=== PATIENT | male | born 2000 | race Hispanic/Latino ===

== ENCOUNTER → 2021-06-16 | Outpatient (CLI) | payer OTHER | END | disposition home or self-care (01) | LOC: LAB 09:01 | PROVIDERS: ATTEND Internal Medicine Cardiovascular Disease | DX: Z20.822 Contact with and (suspected) exposure to COVID-19 (principal) | CPT/HCPCS: 87635; C9803 ==

== ENCOUNTER → 2021-06-19 | Outpatient (CLI) | payer OTHER | END | disposition home or self-care (01) | LOC: LAB 11:31 | PROVIDERS: ATTEND Internal Medicine Cardiovascular Disease | DX: Z20.822 Contact with and (suspected) exposure to COVID-19 (principal) | CPT/HCPCS: 87635; C9803 ==

== ENCOUNTER → 2024-01-20 | Outpatient (CLI) | payer OTHER | END | disposition home or self-care (01) | LOC: LAB 08:16 | PROVIDERS: ATTEND Hospitalist | DX: Z20.822 Contact with and (suspected) exposure to COVID-19 (principal) | CPT/HCPCS: 87426 ==

== ENCOUNTER 2024-02-18 02:29 | Inpatient (IN) | payer OTHER ==
[2024-02-18] VITALS (47 sets, daily range): BP systolic 99–131; BP diastolic 50–86; PULSE 57–130; RESP 16–36; O2SAT 93–100
[~2024-02-18] VITALS: Ht 172.7 cm; Wt 153.8 kg
[2024-02-18 03:10] LABS: BASOPHILS # (AUTO) 0.04 K/uL (0.00-0.20); BASOPHILS % (AUTO) 0.5 % (0.0-5.0); EOSINOPHILS # (AUTO) 0.22 K/uL (0.00-0.70); EOSINOPHILS % (AUTO) 2.6 % (0.0-8.0); HEMATOCRIT 44.3 % (42-54); IMMATURE GRANULOCYTE ABSOLUTE 0.03 K/uL (0-1); LYMPHOCYTES # (AUTO) 3.5 K/uL (1.0-4.8); MEAN CORPUSCULAR HEMOGLOBIN 28.4 pg (27.0-33.0); MEAN CORPUSCULAR HGB CONC 32.3 g/dL (32.0-36.0); MEAN CORPUSCULAR VOLUME 87.9 fL (79-99); MONOCYTES # (AUTO) 0.7 K/uL (0.1-1.0); MONOCYTES % (AUTO) 7.8 % (3.0-13.0); NEUTROPHILS # (AUTO) 4.1 K/uL (1.8-7.7); NEUTROPHILS % (AUTO) 47.8 % (40.0-77.0); PLATELET COUNT (AUTO) 348 K/uL (130-400); RED BLOOD CELL COUNT(AUTO) 5.04 MIL/uL (4.50-6.20); WHITE BLOOD COUNT (AUTO) 8.6 K/uL (4.8-10.8)
[2024-02-18] MEDS: FAMOTIDINE 20MG VIAL IV ONE ×2 (03:14→03:16)
[2024-02-18] MEDS: SOLU-MEDROL 125MG VIAL IVP ONE (03:14)
[2024-02-18] MEDS: DEXAMETHASONE SOD PHOSPHATE 4 MG/ML 1ML VIAL IV ONE (03:15)
[2024-02-18] MEDS: MIDAZOLAM 50MG-0.9% NS 50ML 50 ML IV SCH (03:15)
[2024-02-18] MEDS: SOLU-MEDROL 125MG VIAL ONE (03:16)
[2024-02-18] MEDS: DEXAMETHASONE SOD PHOSPHATE 4 MG/ML 1ML VIAL ONE (03:16)
[2024-02-18 03:21] LABS: ALBUMIN 4.1 g/dL (3.5-5.0); BILIRUBIN,TOTAL 0.5 mg/dL (0.2-1.0); CREATININE 0.9 mg/dL (0.5-1.3); POTASSIUM 3.1 mmol/L (3.5-5.1); TOTAL PROTEIN, SERUM 8.4 g/dL (6.0-8.3)
[2024-02-18 03:26] LABS: ABG BASE EXCESS -0.6 mmol/L (-2.0-3.0); ABG HCO3 24.6 mmol/L (21.0-28.0); ABG PCO2 42 mmHg (35-48); ABG PH 7.384 (7.350-7.450); CARBON MONOXIDE 0.6; PO2, ARTERIAL BG 81.8 mmHg (83.0-108.0); VENT MODE, BG AC VC (ROOM AIR)
[2024-02-18] MEDS ORDERED: DiphenhydrAMINE HCL 50 MG/ML VIAL IM PRN (03:30)
[2024-02-18] MEDS: FENTANYL 1000MCG+NS 100ML 100 ML IV SCH (03:50)
[2024-02-18] MEDS: FENTANYL CITRATE PF 50 MCG/1 ML 2ML VIAL IVP PRN (03:50)
[2024-02-18 03:59] LABS: RAPID GROUP A STREP negative (NEGATIVE)
[2024-02-18 04:01] LABS: SARS-CoV-2, RNA, NAAT NEGATIVE SARS CoV-2 (NEGATIVE)
[2024-02-18 04:04] LABS: INFLUENZA TYPE A Negative For Type A (NEGATIVE); INFLUENZA TYPE B Negative For Type B (NEGATIVE)
[2024-02-18] MEDS: FENTANYL 1000MCG+NS 100ML 100 ML IV ONE (04:22)
[2024-02-18] MEDS: FENTANYL CITRATE PF 50 MCG/1 ML 2ML VIAL IVP ONE (04:24)
[2024-02-18] MEDS ORDERED: IOHEXOL-350 75 ML VIAL IV ONE (04:47)
[2024-02-18] MEDS: LACTATED RINGERS 1000ML 1,000 ML IV SCH (05:47)
[2024-02-18] MEDS: DEXAMETHASONE SOD PHOSPHATE 4 MG/ML 1ML VIAL IV SCH (05:47)
[2024-02-18] MEDS: PROPOFOL 1000 MG/100 ML 100 ML IV SCH (06:18)
[2024-02-18] MEDS: POTASSIUM CHLORIDE 10MEQ/100ML 100 ML IV PRN (06:42)
[2024-02-18] MEDS: FENTANYL 2500MCG+NS 250ML 250 ML IV ONE ×2 (07:17→15:39)
[2024-02-18] MEDS: FUROSEMIDE 40MG VIAL IV SCH ×2 (08:42→21:13)
[2024-02-18] MEDS: FAMOTIDINE 20MG VIAL IV SCH (08:44)
[2024-02-18] MEDS: MONTELUKAST SODIUM 10 MG TAB PO SCH (08:44)
[2024-02-18] MEDS: ENOXAPARIN SODIUM 40 MG/0.4 ML SYRINGE SQ SCH (08:50)
[2024-02-18] MEDS ORDERED: FAMOTIDINE 20MG VIAL IV SCH (09:00)
[2024-02-18] MEDS: POTASSIUM CHLORIDE 10% ELIXIR 20 MEQ/15 ML UDCUP PO PRN (09:15)
[2024-02-18] MEDS: IPRATROPIUM/ALBUTEROL SULFATE 3 ML SOLUTION IH SCH (11:56)
[2024-02-18] MEDS: IPRATROPIUM/ALBUTEROL SULFATE 3 ML SOLUTION IH ONE (11:57)
[2024-02-18] MEDS ORDERED: ROCURONIUM BROMIDE 10MG/1ML 5ML VL IV ONE (12:59)
[2024-02-18 13:02] LABS: AMPHET/METH SCREEN,URINE NEGATIVE (NEGATIVE); BARBITURATE SCREEN, URINE NEGATIVE (NEGATIVE); BENZODIAZEPINES SCREEN,URINE POSITIVE (NEGATIVE); CANNABINOID SCREEN,URINE POSITIVE (NEGATIVE); COCAINE SCREEN,URINE NEGATIVE (NEGATIVE); OPIATE SCREEN,URINE NEGATIVE (NEGATIVE); PHENCYCLIDINE SCREEN,URINE NEGATIVE (NEGATIVE)
[2024-02-18 13:06] LABS: ADD UA MICROSCOPIC NO; APPEARANCE,URINE CLEAR (CLEAR); BILIRUBIN,URINE NEGATIVE (NEGATIVE); COLOR,URINE LIGHT-YELLOW (YELLOW); GLUCOSE, URINE (UA) NEGATIVE (NEGATIVE); KETONES,URINE NEGATIVE (NEGATIVE); LEUKOCYTE ESTERASE ,URINE NEGATIVE Leu/uL (NEGATIVE); NITRATE,URINE NEGATIVE (NEGATIVE); OCCULT BLOOD,URINE NEGATIVE (NEGATIVE); PH,URINE 6.5 (5.0-8.0); PROTEIN,URINE NEGATIVE (NEGATIVE); UROBILINOGEN,URINE 0.2 mg/dL (0.2-1.0)
[2024-02-18] MEDS: ZOSYN 3.375GM +NS 50ML IV SCH (15:38)
[2024-02-18 16:19] LABS: CREATININE 0.8 mg/dL (0.5-1.3); POTASSIUM 4.7 mmol/L (3.5-5.1)
[2024-02-18] MEDS: INSULIN HUMULIN R 100 UNIT/ML 3ML SQ SCH (18:00)
[2024-02-18] MEDS: BUDESONIDE 0.5 MG/2 ML INH IH SCH (18:52)
[2024-02-18] MEDS ORDERED: COMPOUND IV MISC 1 EACH IVSOLN MISC PRN (19:30)
[2024-02-18 20:06] LABS: ABG BASE EXCESS -0.1 mmol/L (-2.0-3.0); ABG HCO3 24.1 mmol/L (21.0-28.0); ABG OXYGEN SATURATION 96.2 % (95.0-99.0); ABG PCO2 38 mmHg (35-48); CARBON MONOXIDE 0.5; HHb 3.8; PO2, ARTERIAL BG 82.9 mmHg (83.0-108.0); VENT MODE, BG AC (ROOM AIR)
[2024-02-18] MEDS: CHLORDIAZEPOXIDE HCL 25 MG CAP PO SCH (21:13)
[2024-02-18] MEDS: THIAMINE HCL 100 MG/ML 2ML VIAL IVP ONE (21:13)
[2024-02-19] VITALS (102 sets, daily range): BP systolic 104–154; BP diastolic 51–94; PULSE 48–124; RESP 5–27; O2SAT 93–97
[2024-02-19] MEDS: FENTANYL 2500MCG+NS 250ML 250 ML IV ONE (00:46)
[2024-02-19 03:30] LABS: HEMATOCRIT 39.6 % (42-54); IMMATURE GRANULOCYTE ABSOLUTE 0.04 K/uL (0-1); LYMPHOCYTES # (AUTO) 0.9 K/uL (1.0-4.8); LYMPHOCYTES % (AUTO) 8.4 % (21.0-51.0); MEAN CORPUSCULAR HEMOGLOBIN 28.5 pg (27.0-33.0); MEAN CORPUSCULAR HGB CONC 32.6 g/dL (32.0-36.0); MEAN CORPUSCULAR VOLUME 87.4 fL (79-99); MONOCYTES # (AUTO) 0.4 K/uL (0.1-1.0); MONOCYTES % (AUTO) 3.3 % (3.0-13.0); NEUTROPHILS # (AUTO) 9.5 K/uL (1.8-7.7); NEUTROPHILS % (AUTO) 87.9 % (40.0-77.0); PLATELET COUNT (AUTO) 313 K/uL (130-400); RED BLOOD CELL COUNT(AUTO) 4.53 MIL/uL (4.50-6.20); RED CELL DISTRIBUTION WIDTH 14.4 % (11.0-15.5); WHITE BLOOD COUNT (AUTO) 10.8 K/uL (4.8-10.8)
[2024-02-19 03:44] LABS: INR <= 0.93 (0.85-1.15); PROTHROMBIN TIME 10.2 SEC (9.6-11.6)
[2024-02-19 03:45] LABS: HEMOGLOBIN A1C 5.9 % (4.0-6.0)
[2024-02-19 03:46] LABS: PARTIAL THROMBOPLASTIN TIME 28.7 SEC (26.3-35.5)
[2024-02-19 03:51] LABS: WBC MORPHOLOGY CONSISTENT W/DIFF
[2024-02-19 03:55] LABS: ALBUMIN 3.6 g/dL (3.5-5.0); BILIRUBIN,TOTAL 0.3 mg/dL (0.2-1.0); CREATININE 0.8 mg/dL (0.5-1.3); MAGNESIUM 2.2 mg/dL (1.80-2.40); POTASSIUM 4.2 mmol/L (3.5-5.1); TOTAL PROTEIN, SERUM 7.4 g/dL (6.0-8.3)
[2024-02-19] MEDS: M.V.I. IV [ADULT] 10 ML, FOLIC ACID 1 MG, THIAMINE HCL 300 MG in 0.9%NACL 1000ML 1,000 ML IV SCH (08:50)
[2024-02-19 09:25] LABS: ABG BASE EXCESS -0.8 mmol/L (-2.0-3.0); ABG HCO3 23.9 mmol/L (21.0-28.0); ABG OXYGEN SATURATION 95.4 % (95.0-99.0); ABG PCO2 40 mmHg (35-48); ABG PH 7.396 (7.350-7.450); DEVICE COMMENT LB; PO2, ARTERIAL BG 77.2 mmHg (83.0-108.0); VENT MODE, BG AC (ROOM AIR)
[2024-02-19] MEDS: CHLORDIAZEPOXIDE HCL 25 MG CAP PO ONE (09:57)
[2024-02-19] MEDS: FENTANYL 2500MCG+NS 250ML 250 ML IV SCH (11:19)
[2024-02-19] MEDS: CHLORDIAZEPOXIDE HCL 25 MG CAP PO SCH (22:00)
[2024-02-19] MEDS: 0.9%NACL 10ML VIAL IV SCH (22:00)
[2024-02-20] VITALS (51 sets, daily range): BP systolic 117–190; BP diastolic 66–127; PULSE 49–124; RESP 15–129; O2SAT 93–97
[2024-02-20 06:09] LABS: HEMATOCRIT 37.5 % (42-54); MEAN CORPUSCULAR HEMOGLOBIN 28.6 pg (27.0-33.0); MEAN CORPUSCULAR HGB CONC 31.5 g/dL (32.0-36.0); RED BLOOD CELL COUNT(AUTO) 4.12 MIL/uL (4.50-6.20); RED CELL DISTRIBUTION WIDTH 14.6 % (11.0-15.5); WHITE BLOOD COUNT (AUTO) 10.9 K/uL (4.8-10.8)
[2024-02-20 06:26] LABS: ALBUMIN 3.1 g/dL (3.5-5.0); BILIRUBIN,TOTAL 0.3 mg/dL (0.2-1.0); CREATININE 0.8 mg/dL (0.5-1.3); MAGNESIUM 2.3 mg/dL (1.80-2.40); POTASSIUM 3.7 mmol/L (3.5-5.1); TOTAL PROTEIN, SERUM 6.4 g/dL (6.0-8.3)
[2024-02-20 10:02] LABS: ABG BASE EXCESS 2.7 mmol/L (-2.0-3.0); ABG HCO3 27.9 mmol/L (21.0-28.0); ABG OXYGEN SATURATION 94.9 % (95.0-99.0); ABG PCO2 45 mmHg (35-48); VENT MODE, BG AC-VC (ROOM AIR)
[2024-02-20] MEDS: METOPROLOL TARTRATE 25 MG TAB PO ONE (10:55)
[2024-02-20] MEDS: DIAZEPAM 5 MG TABLET PO SCH (11:28)
[2024-02-20 14:02] LABS: ABG BASE EXCESS 5.4 mmol/L (-2.0-3.0); ABG HCO3 27.4 mmol/L (21.0-28.0); ABG PCO2 32 mmHg (35-48); ABG PH 7.545 (7.350-7.450); PO2, ARTERIAL BG 135.4 mmHg (83.0-108.0); VENT MODE, BG CPAP PS10 (ROOM AIR)
[2024-02-20] MEDS: LORAZEPAM 2 MG/ML 1 ML VIAL IVP PRN (14:41)
[2024-02-20] MEDS: POLYETHYLENE GLYCOL 3350 17 GM POWD.PACK PO SCH (16:22)
[2024-02-20] MEDS: METOPROLOL TARTRATE 25 MG TAB PO SCH (20:07)
[2024-02-20] MEDS: DEXAMETHASONE SOD PHOSPHATE 4 MG/ML 1ML VIAL IVP SCH (21:07)
[2024-02-20] MEDS: METOPROLOL TARTRATE 50 MG TAB PO ONE (22:30)
[2024-02-21] VITALS (41 sets, daily range): BP systolic 141–184; BP diastolic 81–123; PULSE 68–106; RESP 13–70; O2SAT 92–99
[2024-02-21 05:18] LABS: HEMATOCRIT 42.6 % (42-54); MEAN CORPUSCULAR HEMOGLOBIN 28.3 pg (27.0-33.0); MEAN CORPUSCULAR HGB CONC 32.4 g/dL (32.0-36.0); MEAN CORPUSCULAR VOLUME 87.3 fL (79-99); RED BLOOD CELL COUNT(AUTO) 4.88 MIL/uL (4.50-6.20); WHITE BLOOD COUNT (AUTO) 16.4 K/uL (4.8-10.8)
[2024-02-21] MEDS: HYDRALAZINE 20MG/ML VIAL IV PRN (05:23)
[2024-02-21 05:53] LABS: BILIRUBIN,TOTAL 0.4 mg/dL (0.2-1.0); CREATININE 0.8 mg/dL (0.5-1.3); MAGNESIUM 2.7 mg/dL (1.80-2.40); POTASSIUM 3.9 mmol/L (3.5-5.1); THYROID STIMULATING HORMONE 1.58 uIU/mL (0.36-3.74); TOTAL PROTEIN, SERUM 8.1 g/dL (6.0-8.3)
[2024-02-21] MEDS: Vitamin B Complex/Vit C/Folic Acid PO SCH (08:50)
[2024-02-21] MEDS: THIAMINE HCL 100 MG TABLET PO SCH (08:50)
[2024-02-21] MEDS: METOPROLOL TARTRATE 50 MG TAB PO SCH (08:50)
[2024-02-21] MEDS: MULTIVITAMIN TABLET PO SCH (08:51)
[2024-02-21] MEDS: ONDANSETRON 4MG INJ IV PRN (10:00)
[2024-02-21] MEDS: DiphenhydrAMINE HCL 50 MG/ML VIAL IV PRN (17:37)
[2024-02-21] MEDS ORDERED: DIAZEPAM 5 MG TABLET PO PRN (18:30)
[2024-02-21] MEDS: DIAZEPAM 5 MG TABLET PO SCH (18:36)
[2024-02-21] MEDS: AMLODIPINE 5 MG TAB PO ONE (19:39)
[2024-02-21] MEDS: BENZOCAINE/MENTH/CETYLPYRD CL 1 EACH LOZENGE MM PRN (20:13)
[2024-02-22 03:55] VITALS: BP 138/73; PULSE 57; RESP 16
[2024-02-22 06:13] VITALS: PULSE 79; RESP 28
[2024-02-22] MEDS: LORATADINE 10 MG TABLET PO SCH (07:53)
[2024-02-22] MEDS: AMLODIPINE 5 MG TAB PO SCH (07:54)
[2024-02-22 08:00] VITALS: BP 158/103; PULSE 94; RESP 21
[2024-02-22 09:00] VITALS: O2SAT 97
[2024-02-22] MEDS: AMLODIPINE 5 MG TAB PO ONE (11:47)
[2024-02-22] MEDS ORDERED: AMLO-258 PO (11:50)
[2024-02-22] MEDS ORDERED: METR-172 PO (11:50)
[2024-02-22] MEDS ORDERED: PRED20TA3 PO (11:50)
[2024-02-22] MEDS ORDERED: METO50TA18 PO (11:50)
[2024-02-22] MEDS ORDERED: EPIN0.3P19 IJ (11:50)
[2024-02-22] MEDS ORDERED: AMOX1TAB16 PO (11:50)
[2024-02-22 12:15] VITALS: BP 141/81; PULSE 82; RESP 18
[2024-02-22] MEDS ORDERED: DIAZEPAM 5 MG TABLET PO SCH (14:30)
[2024-02-22] MEDS ORDERED: PREDNISONE 20 MG TABLET PO SCH (16:00)
[2024-02-22] MEDS ORDERED: FAMOTIDINE 20MG TAB PO SCH (21:00)
[2024-02-23] MEDS ORDERED: AMLODIPINE 5 MG TAB PO SCH (09:00)
== END 2024-02-22 13:00 | disposition home or self-care (01) | DRG 208 ==
LOC: EDH 02:29 → EDHIP 03:02 → 2CH 04:09
PROVIDERS: ADMIT Hospitalist; ATTEND Hospitalist
PROC: 0BH17EZ Insertion of Endotracheal Airway into Trachea, Via Natural or Artificial Opening (ICD-10-PCS; principal; 2024-02-18)
PROC: 5A1945Z Respiratory Ventilation, 24-96 Consecutive Hours (ICD-10-PCS; 2024-02-18)
PROC: 5A0935A Assistance with Respiratory Ventilation, Less than 24 Consecutive Hours, High Flow/Velocity Cannula (ICD-10-PCS; 2024-02-20)
PROC: 5A0935A Assistance with Respiratory Ventilation, Less than 24 Consecutive Hours, High Flow/Velocity Cannula (ICD-10-PCS; 2024-02-21)
DX: J69.0 Pneumonitis due to inhalation of food and vomit (principal); J96.01 Acute respiratory failure with hypoxia; J96.02 Acute respiratory failure with hypercapnia; I16.1 Hypertensive emergency; Z68.43 Body mass index [BMI] 50.0-59.9, adult; T78.2XXA Anaphylactic shock, unspecified, initial encounter; Z20.822 Contact with and (suspected) exposure to COVID-19; R13.10 Dysphagia, unspecified; E66.01 Morbid (severe) obesity due to excess calories; T78.3XXA Angioneurotic edema, initial encounter; F10.10 Alcohol abuse, uncomplicated; F12.90 Cannabis use, unspecified, uncomplicated; F17.290 Nicotine dependence, other tobacco product, uncomplicated
CPT/HCPCS: 31500; 36415; 36600; 70491; 71045; 76705; 80048; 80053; 80305; 81003; 82140; 82435; 82803; 82947; 82948; 83036; 83605; 83735; 83880; 84132; 84145; 84295; 84439; 84443; 84481; 84484; 85018; 85025; 85027; 85378; 85610; 85651; 85730; 86850; 86900; 86901; 87040; 87071; 87205; 87635; 87804; 87880; 92610; 93306; 93356; 94002; 94003; 94150; 94640; 94664; 96365; 96375; C1894; G0378; J0360; J1100; J1200; J1650; J1815; J1940; J2060; J2250; J2405; J2543; J2704; J2930; J3010; J3411; J3480; J3490; J7030; Q9967; A9900; C1750

== ENCOUNTER 2024-03-08 22:02 | Emergency (ER) | payer OTHER ==
[~2024-03-08] VITALS: Ht 172.7 cm; Wt 158.8 kg
[~2024-03-08 22:02] MED LIST: AMLO-258 PO; AMOX1TAB16 PO; EPIN0.3P19 IJ; METO50TA18 PO; METR-172 PO; PRED20TA3 PO
[2024-03-08] MEDS: SOLU-MEDROL 125MG VIAL IVP ONE (22:43)
[2024-03-08] MEDS: DiphenhydrAMINE HCL 50 MG/ML VIAL IV ONE (22:43)
[2024-03-08] MEDS: EPINEPHRINE PF 1MG (1:1,000) 1 MG/ML AMP IM ONE (22:43)
[2024-03-08] MEDS: SOLU-MEDROL 125MG VIAL ONE (22:44)
[2024-03-08] MEDS: EPINEPHRINE PF 1MG (1:1,000) 1 MG/ML AMP ONE (22:44)
[2024-03-08] MEDS: DiphenhydrAMINE HCL 50 MG/ML VIAL ONE (22:44)
[2024-03-08] MEDS ORDERED: DICY20TA2 PO (23:04)
[2024-03-08] MEDS ORDERED: PRED20TA3 PO (23:04)
[2024-03-08 23:42] VITALS: BP 132/87; PULSE 118; RESP 18; O2SAT 98
== END 2024-03-08 23:56 | disposition home or self-care (01) ==
LOC: EDH 22:02
DX: T78.3XXA Angioneurotic edema, initial encounter (principal); Z79.899 Other long term (current) drug therapy; Z98.890 Other specified postprocedural states; Y92.89 Other specified places as the place of occurrence of the external cause
CPT/HCPCS: 99284; 96374; 96375; 96372; J1200; J2930; J0171

== ENCOUNTER → 2024-04-19 | Outpatient (CLI) | payer OTHER ==
[~2024-04-19] MED LIST changes: -AMOX1TAB16 PO; +DICY20TA2 PO; +METH4TAB3 PO; -METR-172 PO
[2024-04-21 15:41] LABS: BASOPHILS # (AUTO) 0.04 K/uL (0.00-0.20); BASOPHILS % (AUTO) 0.6 % (0.0-5.0); EOSINOPHILS % (AUTO) 1.4 % (0.0-8.0); HEMATOCRIT 41.9 % (42-54); IMMATURE GRANULOCYTE ABSOLUTE 0.02 K/uL (0-1); LYMPHOCYTES # (AUTO) 2.4 K/uL (1.0-4.8); LYMPHOCYTES % (AUTO) 34.9 % (21.0-51.0); MEAN CORPUSCULAR HGB CONC 33.7 g/dL (32.0-36.0); MEAN CORPUSCULAR VOLUME 86.2 fL (79-99); MONOCYTES # (AUTO) 0.4 K/uL (0.1-1.0); MONOCYTES % (AUTO) 5.9 % (3.0-13.0); NEUTROPHILS % (AUTO) 56.9 % (40.0-77.0); PLATELET COUNT (AUTO) 380 K/uL (130-400); RED BLOOD CELL COUNT(AUTO) 4.86 MIL/uL (4.50-6.20); RED CELL DISTRIBUTION WIDTH 14.9 % (11.0-15.5)
[2024-04-26 17:11] LABS: C1 INHIBITOR FUNCTIONAL >110 (.)
[2024-04-27 12:13] LABS: ALLERGEN COCKROACH GERMAN 0.24 kU/L (Class 0/I); ALLERGEN SHRIMP <0.10 kU/L (Class 0)
[2024-05-17 18:10] LABS: ALLERGEN PECAN NUT <0.10 kU/L (Class 0); ALLERGEN SESAME SEED <0.10 kU/L (Class 0)
== END | disposition home or self-care (01) ==
LOC: LAB 15:08
PROVIDERS: ATTEND Allergy & Immunology
DX: T78.3XXD Angioneurotic edema, subsequent encounter (principal); X58.XXXD Exposure to other specified factors, subsequent encounter
CPT/HCPCS: 36415; 82785; 85025; 86003; 86160; 86161

== ENCOUNTER 2025-05-13 03:19 | Emergency (ER) | payer OTHER ==
[~2025-05-13] VITALS: Ht 177.8 cm; Wt 181.4 kg
--- NOTE | 2025-05-13 03:45 | ERN ---
CONSULTATION NOTE DATE OF ER CONSULTATION: DATE: 05/13/25 REASON FOR CONSULTATION: Shortness of breath please see my 2nd note this note was opened by mistake and I can not figure out how to delete it ALLERGIES: Coded Allergies: No Known Allergies (Unverified Allergy, Unknown, 02/18/24) HOME MEDS: Active Scripts Methylprednisolone (Medrol) 4 Mg Tab.ds.pk, 4 MG PO ACLUNCH, #1 UNIT Prov:ANAY NESS [employer]AUT[employer]URIST 05/16/24 Prednisone (Prednisone) 20 Mg Tablet, 1 TAB PO AD for 6 Days, #14 TAB 0 Refills TAKE 3 TAB BY MOUTH daily X3 DAYS, THEN TAKE 2 TAB BY MOUTH daily X2 DAYS, THEN TAKE 1 TAB BY MOUTH ONCE A DAY X1 DAY. Prov:MICHELLE MENDOZA MD 03/08/24 Dicyclomine HCl (Bentyl) 20 Mg Tab, 20 MG PO TIDP PRN for PAIN, #60 TAB Prov:MICHELLE MENDOZA MD 03/08/24 Epinephrine (Epinephrine) 0.3 Mg/0.3 Ml Auto.injct, 0.3 MG IJ ONCE for severe allergic reaction, #1 SYRINGE 0 Refills Prov:CARLIE FELDMAN CUT OFF SAWYER 02/22/24 Metoprolol Tartrate (Metoprolol Tartrate) 50 Mg Tablet, 50 MG PO BID, #60 TAB 0 Refills Prov:CARLIE FELDMAN CUT OFF SAWYER 02/22/24 Amlodipine Besylate (Amlodipine Besylate) 10 Mg Tablet, 10 MG PO DAILY for 30 Days, #30 TAB 0 Refills Prov:CARLIE FELDMAN CUT OFF SAWYER 02/22/24 VITAL SIGNS Vital Signs Date Time Temp Pulse Resp B/P (MAP) Pulse Ox O2 Delivery O2 Flow Rate FiO2 05/13/25 03:34 129 24 177/110 100 Room Air* 0 21 05/13/25 03:20 98.2 140 20 165/120 99 Room Air ZOE BALL MD May 13, 2025 03:45
[2025-05-13] MEDS: diazePAM 5 MG/ML 2 ML SYG IVP ONE (03:57)
[2025-05-13] MEDS: Solu-medROL 125MG VIAL IVP ONE (03:57)
[2025-05-13] MEDS: FAMOTIDINE 20MG VIAL IV ONE (03:57)
[2025-05-13] MEDS: DiphenhydrAMINE HCL 50 MG/ML VIAL IV ONE (03:57)
[2025-05-13 04:06] VITALS: PULSE 118; RESP 20
[2025-05-13] MEDS: ALBUTEROL 0.083% 2.5 MG/3 ML INH IH PRN (04:07)
--- NOTE | 2025-05-13 05:09 | ERN ---
General Chief Complaint: Other Problems Stated Complaint: ITCHY THROAT Time Seen by MD: 03:40 History of Present Illness Initial Comments Patient is an obese 24-year-old male who has a history of waking up from a deep sleep with swollen airway, wheezing to the point that he needed to be intubated a year ago. At the time of extubation then he was diagnosed with a an extra long uvula. Patient fell asleep today with his neck extended on the couch in his mouth open breathing for extended period of time. And he wakes up with the eye irritated airway wheezing and a sore throat. Here he is teary-eyed and anxious and concerned about needing to be intubated. Timing/Duration: 4-6 hours Allergies: Coded Allergies: No Known Allergies (Unverified Allergy, Unknown, 02/18/24) Home Meds Active Scripts Methylprednisolone (Medrol) 4 Mg Tab.ds.pk, 4 MG PO ACLUNCH, #1 UNIT Prov:ANAY NESS NP 05/16/24 Prednisone (Prednisone) 20 Mg Tablet, 1 TAB PO AD for 6 Days, #14 TAB 0 Refills TAKE 3 TAB BY MOUTH daily X3 DAYS, THEN TAKE 2 TAB BY MOUTH daily X2 DAYS, THEN TAKE 1 TAB BY MOUTH ONCE A DAY X1 DAY. Prov:MICHELLE MENDOZA MD 03/08/24 Dicyclomine HCl (Bentyl) 20 Mg Tab, 20 MG PO TIDP PRN for PAIN, #60 TAB Prov:MICHELLE MENDOZA MD 03/08/24 Epinephrine (Epinephrine) 0.3 Mg/0.3 Ml Auto.injct, 0.3 MG IJ ONCE for severe allergic reaction, #1 SYRINGE 0 Refills Prov:CARLIE FELDMAN 02/22/24 Metoprolol Tartrate (Metoprolol Tartrate) 50 Mg Tablet, 50 MG PO BID, #60 TAB 0 Refills Prov:CARLIE FELDMAN 02/22/24 Amlodipine Besylate (Amlodipine Besylate) 10 Mg Tablet, 10 MG PO DAILY for 30 Days, #30 TAB 0 Refills Prov:CARLIE FELDMAN 02/22/24 Past Medical History Past Medical History: Hypertension Medical History Other: Anaphylaxis W/ INTUBATION, morbid obesity Past Surgical History: None Family History Family History: Negative Social History Social History: Smokers, Lives with family Constitutional: (-) chills, (-) diaphoresis, (-) fever, (-) malaise, (-) weakness, (-) other documentation EENTM: (-) eye pain, (-) blurred vision, (-) tearing, (-) double vision, (-) ear pain, (-) ear discharge, (-) nose pain, (-) nose congestion, (-) throat pain, (-) Throat swelling, (-) mouth pain, (-) tooth pain, (-) mouth swelling, (-) other documentation Respiratory: (+) cough, (+) wheezing Cardiovascular: (-) chest pain, (-) edema, (-) palpitations, (-) syncope, (-) dyspnea on exertion, (-) other documentation Gastrointestinal/Abdominal: (+) vomiting Physical Exam General Appearance: (+) moderate distress Orientation: (+) oriented x 3 Head/Face Trauma: No Eye: bilateral eye normal inspection, bilateral eye PERRL, bilateral eye EOMI Ear, Nose, Throat: (+) hearing grossly normal, (+) normal ENT inspection, (+) moist mucous membraine, (+) normal pharynx Ear, Nose, Throat Comment Pharynx appeared normal aside from the extra long uvula. There was no swelling or erythema. Neck: (+) normal inspection, (+) supple, (+) full range of motion Respiratory: (+) chest non-tender, (+) lungs clear Heart: (+) regular, (+) no gallop Vascular: (+) no edema Gastrointestinal: (+) soft, (+) bowel sound present MDM I treated the patient with 125 mg of Solu-Medrol 50 mg of Benadryl and 20 mg of famotidine. For his anxiety I gave him Valium. The patient's respiratory rate slowed down to where he was breathing at a rate of 20 per minute. His oxygen saturation 100% on room air and he feels much better. I obtained a chest x-ray to rule out aspiration and I did not see any evidence of aspiration. I will discharge the patient home with a prescription for oral steroids. I strongly recommended see his doctor about getting a CPAP machine. ED Course Orders Procedure Category Date Status Time Albuterol 0.083% PHA 05/13/25 In Process 2.5mg/3ml (Proventil 04:00 Methylprednisolone PHA 05/13/25 Complete Succ 125mg (Solu-Medr 04:00 Diphenhydramine Hcl PHA 05/13/25 Complete (Benadryl Inj) 04:00 Famotidine 20mg Vial PHA 05/13/25 Complete (Pepcid 20mg Vial) 04:00 Chest 1vw RAD 05/13/25 Taken 03:43 Throat Culture NADYA 05/13/25 Logged 03:43 Diazepam 5 Mg/Ml 2 Ml PHA 05/13/25 Complete Syg (Valium 5 Mg/M 04:00 Current Medications Medications (Trade) Dose Ordered Sig/Landy Route PRN Reason Start Time Stop Time Status Last Admin Dose Admin Albuterol Sulfate (Proventil 0.083% 2.5mg/3ml) 2.5 mg Q20M PRN IH SHORTNESS OF BREATH 05/13/25 04:00 05/13/25 04:07 Diazepam (VALium 5 MG/ML 2 ML SYG) 5 mg ONCE ONCE IVP 05/13/25 04:00 05/13/25 04:01 DC 05/13/25 03:57 Diphenhydramine HCl (BENAdryl INJ) 50 mg ONCE ONCE IV 05/13/25 04:00 05/13/25 04:01 DC 05/13/25 03:57 Famotidine (Pepcid 20mg Vial) 20 mg ONCE ONCE IV 05/13/25 04:00 05/13/25 04:01 DC 05/13/25 03:57 Methylprednisolone Sodium Succinate (Solu-medROL 125MG) 125 mg ONCE ONCE IVP 05/13/25 04:00 05/13/25 04:01 DC 05/13/25 03:57 Vital Signs Date Time Temp Pulse Resp B/P (MAP) Pulse Ox O2 Delivery O2 Flow Rate FiO2 05/13/25 05:16 98.2 93 20 149/87 100 Room Air* 0 05/13/25 04:43 100 20 135/91 100 Room Air* 0 05/13/25 04:25 98.2 103 20 154/107 100 Room Air* 0 05/13/25 04:06 118 20 05/13/25 03:34 129 24 177/110 100 Room Air* 0 05/13/25 03:20 98.2 140 20 165/120 99 Room Air DX & DISP Disposition: Discharge Departure Impression: Primary Impression: Respiratory distress Condition: Stable Scripts Prednisone (Prednisone) 5 Mg Tablet 1 TAB PO DAILY PRN for shortness of breath for 30 Days, #30 TAB 0 Refills Prov: ZOE BALL MD 05/13/25 Additional Instructions: I strongly recommend you be evaluated for sleep apnea. The fact that you fall asleep with her mouth open and that you have a long lingula and youre weight all put you at a high risk for sleep apnea. Referrals: [facility] [employer] APPRENTICE (PCP) ZOE BALL MD May 13, 2025 05:09
[2025-05-13 05:16] VITALS: BP 149/87; PULSE 93; RESP 20; TEMP 98.3; O2SAT 100
[2025-05-13] MEDS ORDERED: PRED5TAB PO (05:25)
--- NOTE | 2025-05-13 08:42 | HMCIMG ---
Exam Type: CHEST 1VW Clinical Information: cough Comparison: None Findings: The lungs are clear of infiltrates. The heart is normal in size. The bony and soft tissue structures of the chest are unremarkable. Impression: Clear lungs.
== END 2025-05-13 05:35 | disposition home or self-care (01) ==
LOC: EDH 03:19
DX: R06.03 Acute respiratory distress (principal); E66.01 Morbid (severe) obesity due to excess calories; I10 Essential (primary) hypertension; F17.200 Nicotine dependence, unspecified, uncomplicated; Z79.899 Other long term (current) drug therapy
CPT/HCPCS: 99285; 96374; 96375; 71045; 94640; J2919; J1200; J3490; J3360